=== PATIENT | male | born 1990 ===

== ENCOUNTER 2017-08-13 18:14 | Emergency (ER) | payer OTHER, SELFPAY ==
[2017-08-13 18:20] VITALS: BP 157/109; PULSE 118; RESP 16; TEMP 98; O2SAT 100
--- NOTE | 2017-08-13 19:54 | ED PDOC ---
HPI: Eye Injury/Pain Time Seen by Provider: 08/13/17 19:20 Chief Complaint (Nursing): Eye Problem Chief Complaint (Provider): Eye Problem History Per: Patient History/Exam Limitations: no limitations Onset/Duration Of Symptoms: Days (x6 days) Current Symptoms Are (Timing): Still Present Additional Complaint(s): Gabriel Zuniga is a 27 year old male who presents to the ED complaining of eye pain x6 days. Patient states a refrigerator door hit his eye while opening it at work. Confirms nose bleed at the time and worsening eye pain since. Patient denies glasses and states he has never had his eyes checked. Admits to alcohol. PMD: Non H-Provider Past Medical History Reviewed: Historical Data, Nursing Documentation, Vital Signs Vital Signs: Last Vital Signs Temp 98.0 F 08/13/17 18:18 Pulse 118 H 08/13/17 18:18 Resp 16 08/13/17 18:18 BP 157/109 H 08/13/17 18:18 Pulse Ox 100 08/13/17 18:18 - Family History Family History: States: Unknown Family Hx - Immunization History Hx Tetanus Toxoid Vaccination: Yes Hx Influenza Vaccination: No Hx Pneumococcal Vaccination: No - Home Medications Home Medications: Ambulatory Orders Medication Instructions Recorded oxyCODONE/Acetaminophen [Percocet 1 tab PO QID PRN #20 tab 08/18/15 5/325 mg Tab] Ciprofloxacin 0.3% [Ciloxan 0.3% 1 drop RIGHTEYE QID #1 bottle 08/13/17 Ophth SOLN] - Allergies Allergies/Adverse Reactions: Allergies Allergy/AdvReac Type Severity Reaction Status Date / Time No Known Allergies Allergy Verified 08/13/17 18:18 Review of Systems ROS Statement: Except As Marked, All Systems Reviewed And Found Negative Eyes: Positive for: Pain Physical Exam - Reviewed Nursing Documentation Reviewed: Yes Vital Signs Reviewed: Yes - Physical Exam Appears: Positive for: Well, Non-toxic, No Acute Distress Head Exam: Positive for: ATRAUMATIC, NORMAL INSPECTION, NORMOCEPHALIC Skin: Positive for: Normal Color. Negative for: Rash Eye Exam: Positive for: PERRL (Bilateral pupils dilated but constrict instantly. ), Other (Patient unable to see eye chart with good or bad eye.). Negative for: Normal appearance (No fluorescein uptake. Pyterygium in medial aspect of right eye. No abrasion. ) Neurologic/Psych: Positive for: Alert, Oriented - ECG O2 Sat by Pulse Oximetry: 100 (RA) Pulse Ox Interpretation: Normal Medical Decision Making Medical Decision Making: Time: 19:38 Initial Impression: Right eye injury Plan: --Upon provider evaluation patient is medically stable, and requires no further treatment in the ED at this time. Patient will be discharged home with Rx for Ciloxan eye drops. Counseling was provided and all questions were answered regarding diagnosis and need for follow up with Opthamologist. There is agreement to discharge plan. Return if symptoms persist or worsen. Scribe Attestation: Documented by Eric Edmondson, acting as a scribe for Davis Starks PA-C Provider Scribe Attestation: All medical record entries made by the Scribe were at my direction and personally dictated by me. I have reviewed the chart and agree that the record accurately reflects my personal performance of the history, physical exam, medical decision making, and the department course for this patient. I have also personally directed, reviewed, and agree with the discharge instructions and disposition. Disposition - Clinical Impression Clinical Impression: Eye injury - Patient ED Disposition Is Patient to be Admitted: No Counseled Patient/Family Regarding: Diagnosis, Need For Followup, Rx Given - Disposition Referrals: Anders Piper MD [Staff Provider] - Disposition: Routine/Home Disposition Time: 19:38 Condition: FAIR Prescriptions: Ciprofloxacin 0.3% [Ciloxan 0.3% Ophth SOLN] 1 drop RIGHTEYE QID #1 bottle Instructions: Eye Pain (ED) Forms: [facility] (Czech) Print Language: [place]
== END 2017-08-13 20:40 | disposition home or self-care (01) ==
LOC: H.ER 18:14
DX: S05.91XA Unspecified injury of right eye and orbit, initial encounter (principal); R04.0 Epistaxis; W22.8XXA Striking against or struck by other objects, initial encounter; Y99.0 Civilian activity done for income or pay